=== PATIENT | female | born 1985 | race Caucasian/White ===

== ENCOUNTER 2024-06-14 23:20 | Emergency (ER) | payer BC, SELFPAY ==
[2024-06-14 23:22] VITALS: BP 142/90
[2024-06-15 00:23] LABS: Urine Albumin Negative (Neg - Trace); Urine Bilirubin Negative (Negative); Urine Character Clear (Clear); Urine Color Straw; Urine Glucose Negative (Negative); Urine Ketone Negative (Negative); Urine Leukocyte Negative (Negative); Urine Nitrite Negative (Negative); Urine Occult Blood Negative (Negative); Urine Specific Gravity 1.005 (<1.030); Urine Urobilinogen Negative (Neg - 1+)
[2024-06-15 00:43] LABS: % Basophils 0.3 % (0-2); % Eosinophils 1.1 % (0-6); % Immature Granulocytes 1.8 % (0-0.5); % Lymphocytes 19.4 % (20.5-51.1); % Monocytes 8.4 % (1.7-9.3); Absolute Eosinophils 0.1 10^3/uL (0-0.7); Absolute Immature Granulocytes 0.2 10^3/uL (0-0.05); Absolute Lymphocytes 1.9 10^3/uL (1.2-3.4); Absolute Monocytes 0.8 10^3/uL (0.1-0.6); Absolute Neutrophils 6.9 10^3/uL (1.4-6.5); Hematocrit 31.5 % (37.0-47.0); Hemoglobin 10.8 g/dL (12.0-16.0); Mean Corp Hgb Conc. 34.3 g/dL (33.0-37.0); Mean Corpuscular Hgb 29.8 pg (27.0-31.0); Mean Platelet Volume 10.9 fL (7.4-10.4); Nucleated Red Blood Cells % 0 %; Platelet Count 209 10^3/uL (130-400); Red Blood Cell Count 3.62 10^6/uL (4.20-5.40); Red Cell Dist. Width 14.5 % (11.5-14.5)
[2024-06-15 00:57] LABS: ALT (SGPT) 14 U/L (0-35); AST (SGOT) 21 U/L (14-36); Albumin 3.2 g/dl (3.5-5.0); Alkaline Phosphatase 71 U/L (38-126); Blood Urea Nitrogen 6 mg/dl (7-17); Carbon Dioxide 22 mmol/L (22-30); Chloride 106 mmol/L (98-107); Glucose 91 mg/dl (70-99); Potassium 3.8 mmol/L (3.5-5.1); Sodium 136 mmol/L (135-145); Total Bilirubin 0.1 mg/dl (0.2-1.3); Total Protein 5.8 g/dl (6.3-8.2); eGFR > 60.00
--- NOTE | 2024-06-15 01:28 | ED.GENMED ---
History of Present Illness
General
Chief Complaint: Flank Pain
Source: patient and family
Exam Limitations: none
Time Seen by Provider: 06/14/24 23:51
Nursing documentation reviewed up to this point in time: agreed with
History of Present Illness
History of Present Illness:
Pleasant 28-week female presents to the emergency department with left-sided flank pain with some nausea. Around 9:30 PM last evening pain came on. At time of exam she states that the pain mostly subsided. After the pain started she
called Dr. Hayes, her [employer] who advised her to come into the emergency department.. Patient has no other complaints. Denies fever, chills, chest pain, or shortness of breath. Denies any calf tenderness.
Review of Systems
Review of Systems
Allergies reviewed?: Yes
All Other Systems: ROS reviewed and negative except as documented in HPI and ROS
Constitutional: Reports no symptoms
EENT: Reports no symptoms
Respiratory: Reports no symptoms
Cardiac: Reports no symptoms
ABD/GI: Reports nausea
: Reports flank pain; Denies dysuria, incontinence, difficulty voiding, urgency, bleeding or discharge
Musculoskeletal: Reports muscle pain
Skin: Reports no symptoms
Neurological: Reports no symptoms
Endocrine: Reports no symptoms
Hematologic/Lymphatic: Reports no symptoms
Psychiatric: Reports anxiety
Phy Exam
General Physical Exam
General Presentation: well appearing and no apparent distress
General Skin: warm and dry
General Habitus: normal
General Mental: alert
General Hydration: appears well hydrated
ENT Exam
ENT Exam: EOMI, pharynx normal, neck supple and normocephalic
Eye Exam
Eye Exam: PERRL, cornea clear and conjunctiva normal
Cardiovascular Exam
Cardiovascular Exam: regular rate/rhythm, no edema, no murmur and normal peripheral pulses
Pulmonary Exam
Pulmonary Exam: lungs clear, no respiratory distress, no rales, no crackles, no rhonchi, no stridor, no wheezing and no cough
Gastrointestinal Exam
Gastrointestinal Exam: normal bowel sounds, non tender, soft, no organomegaly, non distended and other (Gravid appearing)
Neurological Exam
Neurological Exam: alert, oriented x3, no motor deficits and speech normal
Musculoskeletal Exam
Musculoskeletal Exam: full ROM and no edema
Skin Exam
Skin Exam: normal color, warm/dry, no rash and no petechia
Psychiatric Exam
Psychiatric Exam: normal mood/affect
Course
Orders/Labs/Results
Orders:
Orders
06/14/24 23:52
Urinalysis Reflex To Culture Urgent
Date Specimen was Collected: 06/15/24
Time Specimen was Collected: 00:05
06/14/24 23:59
Complete Blood Count/With Diff Urgent
Comprehensive Metabolic Panel Urgent
06/15/24 00:00
US Renal Only W/O Bladder Urgent
Reason For Exam: left flank pain
Abnormal Lab Results
06/15/24
00:06
RBC 3.62 L 10^6/uL
(4.20-5.40)
Hgb 10.8 L g/dL
(12.0-16.0)
Hct 31.5 L %
(37.0-47.0)
MPV 10.9 H fL
(7.4-10.4)
Abs Immat Gran (auto) 0.2 H 10^3/uL
(0-0.05)
Absolute Neuts (auto) 6.9 H 10^3/uL
(1.4-6.5)
Absolute Monos (auto) 0.8 H 10^3/uL
(0.1-0.6)
Immature Gran % 1.8 H %
(0-0.5)
Lymphocytes % 19.4 L %
(20.5-51.1)
BUN 6 L mg/dl
(7-17)
Creatinine 0.5 L mg/dL
(0.6-1.0)
Total Bilirubin 0.1 L mg/dl
(0.2-1.3)
Total Protein 5.8 L g/dl
(6.3-8.2)
Albumin 3.2 L g/dl
(3.5-5.0)
06/15/24 00:06
06/15/24 00:06
Vital Signs
Initial and Last Documented VS:
Initial Vital Signs
Temp Pulse Resp BP Pulse Ox
98 F 94 18 142/90 98
06/14/24 23:22 06/14/24 23:22 06/14/24 23:22 06/14/24 23:22 06/14/24 23:22
Last Documented Vital Signs
Temp Pulse Resp BP Pulse Ox
98 F 94 18 142/90 98
06/14/24 23:22 06/14/24 23:22 06/14/24 23:22 06/14/24 23:22 06/14/24 23:22
*Critical Care Note
Total Time (30-74mins, 75-104mins- exclusive of procedures): Not Applicable
Update Note
Update Note:
Ultrasound renal
IMPRESSION:
Mild/moderate right-sided hydronephrosis. Left kidney without hydronephrosis.
No gross renal mass or stones.
Completely decompressed bladder.
heart tones measured by nursing to be within normal limits. Patient asymptomatic at time of discharge.
ED Attending Note
-
Portions of this chart may have been created with voice recognition software.� Occasional wrong word or��sound alike� substitutions may have occurred due to the inherent limitations of voice recognition software.
Discharge Plan
Departure
Patient Disposition: Home (Routine Discharge)
Date of Disposition: 06/15/24
Time of Disposition: 01:30
Patient with high blood pressure during this ER visit?: Yes
Discharge Problem:
Abdominal pain
Instructions: Stomach Pain Later in , BLOOD PRESSURE
Prescriptions:
No Action
sucralfate [Carafate] 100 mg/mL suspension
10 ml PO ACHS Qty: 400 0RF
Referrals:
Serafin Hayes MD [Active] -
Anusha Chaves CRNP [Family Provider] -
Activity Restrictions/Additional Instructions:
It was a pleasure meeting you and taking part in your care. We hope for your continued healing and wellness.
Please read discharge instructions in their entirety. However, they are for general education and may not describe your exact diagnosis at discharge. Information on your ER visit and medical conditions were discussed with you along with appropriate
follow up information...
If indicated, please take your medications as instructed and indicated on discharge paperwork.
Please schedule a follow up appointment as directed. Call to schedule an appointment
Please return to the emergency department with ANY change in, persisting, or worsening of symptoms. If any of your symptoms do not improve, or persist, or become more severe within 6-12 hours, please return to the emergency department for further
care.
Please return to the emergency department if you develop a headache, neck pain/stiffness, fever greater than 100.4F, chest pain, shortness of breath, persistent nausea, vomiting, slurred speech, difficulty walking, numbness/tingling, weakness, signs
of infection or any other symptoms that are worrisome to you.
If you have any questions or concerns please do not hesitate to call the Hospital at or E-mail me directly at [email or web address]
Interventions
Interventions:
*Risk Screen - Suicide Last Done: 06/14/24 23:22
*General Assessment Last Done: 06/15/24 00:26
*Neglect/Abuse Screening Last Done: 06/14/24 23:22
*ED COVID-19 Vaccine History Last Done: 06/15/24 00:26
*Nursing Disposition Last Done: 06/15/24 01:41
KQ-Qholxm-Fhccfczkqx Assessment Last Done: 06/14/24 23:32
ED-Female Genitourinary Assessment Last Done: 06/15/24 01:30
Discharge Date and Time
Discharge Date/Time: 06/15/24 01:41
Print Language: MARTINIQUAIS
== END 2024-06-15 01:41 | disposition home or self-care (01) ==
LOC: EMR 23:20
PROVIDERS: EMERGENCY PHYSICIAN Student in an Organized Health Care Education/Training Program; FAMILY PHYSICIAN Nurse Practitioner
DX: O99.891 Other specified diseases and conditions complicating pregnancy (principal); R10.9 Unspecified abdominal pain; Z3A.28 28 weeks gestation of pregnancy
CPT/HCPCS: 99284; 76775; 80053; 81003; 85025

== ENCOUNTER → 2024-08-08 07:55 | Outpatient (REF) | payer BC, SELFPAY | LOC: PNTC 07:55 | PROVIDERS: ATTENDING PHYSICIAN Obstetrics & Gynecology | DX: Z31.83 Encounter for assisted reproductive fertility procedure cycle (principal); D25.9 Leiomyoma of uterus, unspecified | CPT/HCPCS: 59025; 76816 ==

== ENCOUNTER → 2024-08-15 07:58 | Outpatient (REF) | payer SELFPAY | LOC: PNTC 07:58 | PROVIDERS: ATTENDING PHYSICIAN Obstetrics & Gynecology | DX: Z31.83 Encounter for assisted reproductive fertility procedure cycle (principal); O09.819 Supervision of pregnancy resulting from assisted reproductive technology, unspecified trimester; O09.519 Supervision of elderly primigravida, unspecified trimester | CPT/HCPCS: 59025; 76815 ==

== ENCOUNTER → 2024-08-22 08:14 | Outpatient (REF) | payer OTHER, SELFPAY | LOC: PNTC 08:14 | PROVIDERS: ATTENDING PHYSICIAN Obstetrics & Gynecology | DX: O09.819 Supervision of pregnancy resulting from assisted reproductive technology, unspecified trimester (principal); O09.529 Supervision of elderly multigravida, unspecified trimester | CPT/HCPCS: 59025 ==

== ENCOUNTER → 2024-08-30 13:15 | Outpatient (REF) | payer OTHER, SELFPAY | LOC: PNTC 13:15 | PROVIDERS: ATTENDING PHYSICIAN Obstetrics & Gynecology | DX: O09.519 Supervision of elderly primigravida, unspecified trimester (principal); O09.819 Supervision of pregnancy resulting from assisted reproductive technology, unspecified trimester | CPT/HCPCS: 59025 ==

== ENCOUNTER → 2024-09-05 13:18 | Outpatient (REF) | payer OTHER, SELFPAY | LOC: PNTC 13:18 | PROVIDERS: ATTENDING PHYSICIAN Obstetrics & Gynecology | DX: O09.519 Supervision of elderly primigravida, unspecified trimester (principal); O09.819 Supervision of pregnancy resulting from assisted reproductive technology, unspecified trimester | CPT/HCPCS: 59025 ==

== ENCOUNTER 2024-09-06 18:56 | Inpatient (IN) | payer OTHER, SELFPAY ==
[2024-09-06 19:07] VITALS: BP 111/85; BMI 26.7
[2024-09-06 19:31] LABS: % Basophils 0.3 % (0-2); % Eosinophils 0.5 % (0-6); % Immature Granulocytes 0.3 % (0-0.5); % Lymphocytes 16.5 % (20.5-51.1); % Monocytes 7.6 % (1.7-9.3); % Neutrophils 74.8 % (42.2-75.2); Absolute Eosinophils 0.1 10^3/uL (0-0.7); Absolute Lymphocytes 2.1 10^3/uL (1.2-3.4); Absolute Neutrophils 9.6 10^3/uL (1.4-6.5); Hematocrit 38.5 % (37.0-47.0); Hemoglobin 13.2 g/dL (12.0-16.0); Mean Corp Hgb Conc. 34.3 g/dL (33.0-37.0); Mean Corpuscular Hgb 29.1 pg (27.0-31.0); Mean Platelet Volume 11.6 fL (7.4-10.4); Nucleated Red Blood Cells % 0 %; Platelet Count 201 10^3/uL (130-400); Red Blood Cell Count 4.53 10^6/uL (4.20-5.40); Red Cell Dist. Width 14.1 % (11.5-14.5); White Blood Cell Count 12.8 10^3/uL (4.8-10.8)
[2024-09-06] MEDS: CYTOTEC 25 MICROGRAM VAG (20:08)
[2024-09-07] MEDS: CYTOTEC 50 MICROGRAM PO ×4 (00:01→15:58)
[2024-09-07] MEDS: LR 1000 IV ×3 (01:09→22:00)
[2024-09-07] MEDS: CYTOTEC PO ×2 (04:44→20:38)
[2024-09-07] MEDS: PITOCIN 30 UNITS/NSS 500 ML IV (23:32)
[2024-09-08] MEDS: STADOL 1 MG IV (03:12)
[2024-09-08] MEDS: LR 1000 IV (05:17)
[2024-09-08] MEDS: TYLENOL 1000 MG PO (10:03)
[2024-09-08] MEDS: BICITRA 30 ML PO (10:03)
[2024-09-08] MEDS: CLEOCIN 50 IV (10:03)
[2024-09-08] MEDS: ZITHROMAX INFUSION 250 IV (10:10)
[2024-09-08] MEDS: GENTAMICIN 58.25 MG IV (10:10)
--- NOTE | 2024-09-08 16:16 | HPS.HSE ---
Family Physician
-
Family Physician: NOT KNOW UNKNOWN - PT DOES
Chief Complaint
-
Induction of labor
History of Present Illness
HPI: Patient is a 38yo @40.6 weeks who presented to Labor and Delivery on 09/06 for elective IOL. She received Cytotec overnight. She then had a cook balloon placed and continued Cytotec. She had spontaneous rupture of membranes and cook balloon
was removed. She was 1-/-2. She was expectantly managed for some time and then started on Pitocin. Pitocin was turned off secondary to variable decelerations. In the morning, she was started on Pitocin again and had a couple large variable
decelerations. Her exam was unchanged and section was recommended.
complications:
- AMA
- IVF
- Uterine fibroids
- FOB Brugada Syndrome, echo normal
PNL: A+/Ab neg/Pap NIL-HPV neg/RI/Ucx NG/Hbsag Neg/HIV Neg/Gc-Ct Neg/Hep C Neg/1hr 137/3hr nml/GBS Neg/PGT Neg
PMHx: migraine, infertility. Fibroids- Fundal 4cm, 2 posterior- 3.2 & 3cm
PSHx; IVF, R. breast cystectomy, [place] teeth extraction
POBHx:Prime (adopted her niece)
FHx: non contributory
SHx: Neg x3
Meds:PNV, Baby ASA
All:Ceclor
Medical History
Past Medical History
Past Medical History: Reports Other
Additional Past Medical History:
migraine, infertility
Past Surgical History: Reports Other
Additional Past Surgical History:
IVF, R breast cystectomy, wisdom teeth
Social History
Tobacco: Non-smoker
Alcohol: None
Drug: None
Family History
Family History: Not pertinent
Allergies / Home Medications
Allergies reflects when Allergies were last updated in [employer].
Home Medications with original date entered in [employer]
Allergy/Medication List:
All: Ceclor
Meds: bASA, PNV
Review of Systems
-
A 12 point ROS was completed and negative except as noted: Yes
Physical Exam
Vital Signs
Vital Signs
Temp Pulse Resp BP
98.5 F 99 16 111/85
09/06/24 19:07 09/06/24 19:07 09/06/24 19:07 09/06/24 19:07
Physical Exam
General: Well Developed and Well Nourished
HEENT: NormoCephalic
Respiratory: Non Labored Respirations
Cardiac: Regular Rhythm
Skin: Warm and Dry
Neuro: Awake and Alert
Psych: Calm
Laboratory Results
-
09/06/24 19:20
Impression/Plan
-
IMPRESSION:
Patient is a 38yo @40.6 presented for IOL on 09/06, now plan to proceed with primary section for non-reassuring heart tones, failed induction of labor
PLAN:
- Risks, benefits, and alternatives to primary section discussed with patient including risks, benefits, alternatives, and need for future operations. She was consented for a blood transfusion in case of emergency. All consent signed.
- Azithromycin, gentamicin, and clindamycin were ordered for antibiotic prophylaxis
- Anesthesia and NICU notified
- Plan to proceed with primary section
--- NOTE | 2024-09-08 18:11 | OR.RPT ---
Operative Report
Operative Report
Preop diagnosis: IUP @40.6, non-reassuring heart tones, failed induction of labor, uterine fibroids, advanced maternal age, IVF
Postop diagnosis: same, velamentous cord insertion
Procedure: Primary low transverse section
Surgeon: Al
Anesthesia: Spinal, Dr. Miles
QBL: 275mL
Findings: Viable male infant born at 1040, Apgars 8/9, nuchalx1, placenta with velamentous cord insertion, 3-4cm intramural fundal fibroid, normal appearing bilateral fallopian tubes and ovaries
Complications: none
Wagner catheter draining clear urine before and after the procedure
Indication: Patient is a 38yo who presented to Labor and Delivery on the evening of 09/06 for elective induction of labor. She was fingertip at the time. She was started on Cytotec. In the morning, she was one and a Cook balloon was placed.
Cytotec was continued for 6 doses. She spontaneously ruptured for clear fluid at 2030. The cook balloon was removed at that time and she was 1-2/50/-2. She was main on her own and expectantly managed. Contractions started to space out and she
was started on Pitocin around 2200. She made change to 2/70/-3 at 0300. At 0415, Pitocin was turned off secondary to variable decelerations. Later in the morning, patient requested to take a shower. Her exam was unchanged. While she was in the
shower, she had a variable deceleration that resolved. Pitocin was restarted. She then had another large variable deceleration. Her exam was still unchanged and Pitocin was turned off. Discussed with patient that at this time, we are not able to
continue the Pitocin and since her exam remains unchanged over several hours, recommend proceeding with primary section. Risks, benefits and alternatives discussed. Anesthesia and NICU were notified.
Procedure: Patient was taken to the operating room where spinal anesthesia was administered and found to be adequate. 5mg/kg of gentamicin, 900mg of Clindamycin, and 500g of Azithromycin were given for antibiotic prophylaxis. The abdomen was prepped
with ChloraPrep. The patient was draped in the normal sterile fashion. She was placed in the dorsal supine position with a left lateral tilt. A Pfannenstiel incision was made with a 10 blade and carried down to the fascia with a scalpel. Hemostasis
achieved with Bovie. The fascia was incised and dissected laterally with Delgado scissors. The superior aspect of the fascia was grasped with Stephenie clamps. The underlying rectus fascia was sharply dissected with Delgado scissors. In a similar fashion the
inferior aspect of the fascia was elevated with Stephenie clamps and the rectus muscle was dissected off with Delgado scissors. The rectus muscles were down the midline to the level of the pubic symphysis with manual dissection. The peritoneum
was bluntly entered and extended using manual traction and Metzenbaum scissors.
Hurst retractor and bladder blade were placed revealing good visualization of the bladder. The vesicouterine peritoneum was identified. A thin lower uterine segment was noted. The lower uterine segment was incised with a scalpel. Small amount
of clear fluid noted at entry into the cavity. The uterine incision was extended bluntly with lateral and upward traction.
The fetus was in cephalic presentation. The head was elevated out of the pelvis with special attention paid to avoid using the uterine incision as a fulcrum. Gentle fundal pressure was applied one the head was brought to the incision. The head
delivered through the hysterotomy. A loose nuchal x1 was reduced and the rest of the infant delivered without difficulty. Delayed cord clamping was performed. Cord gases were collected. The was handed off to the cna. IV oxytocin was
started to facilitate uterine contractions. The placenta was extracted with fundal massage and gentle traction. A velamentous cord insertion was noted and the placenta was sent to pathology for evaluation. The uterus was exteriorized. Allis clamps
were placed at the apices of the hysterotomy. The inside of the uterus was wiped with a lap sponge to assure complete removal of placental membranes. Fundal massage was performed and uterus noted to be firm. The uterine incision was closed with 0
Vicryl in a running locked fashion. A horizontal imbricating stitch was done on the hysterotomy with 0 Vicryl. There was oozing from the left side and center of the hysterotomy and multiple figure of eights with 0 Vicryl and 2-0 Vicryl were used to
achieve hemostasis. A figure of eight with 2-0 Vicryl was placed on the left side of the hysterotomy to achieve hemostasis. The hysterotomy was inspected and noted to be hemostatic. The uterus was placed back in the abdomen. Blood clots and fluid
were wiped out of the abdomen and pelvis with moist laparotomy sponges. There was oozing from the serosa in the middle of the uterus on the right side. Bovie cautery was used to control the oozing. The hysterotomy and uterus were examined again and
noted to be hemostatic.
The rectus muscles were inspected and noted to be hemostatic. The fascial layer was closed in a running continuous fashion using 0 Vicryl. The subcutaneous tissue was copiously irrigated and any small bleeding vessels were cauterized with Bovie
cautery. The subcutaneous tissue was reapproximated in a running continuous fashion with 2-0 Plain. The skin was closed with 4-0 Vicryl in a subcuticular fashion. The incision had a small amount of oozing. Steri strips and a pressure dressing were
applied. The patient tolerated the procedure well. All sponge and instrument counts were correct times two. The patient was taken to the recovery room in stable condition.
[2024-09-08] MEDS: TORADOL 15 MG IV (18:24)
[2024-09-09] MEDS: TORADOL 15 MG IV ×3 (00:01→12:26)
[2024-09-09 05:09] LABS: Hematocrit 34.8 % (37.0-47.0); Hemoglobin 11.7 g/dL (12.0-16.0); Mean Corp Hgb Conc. 33.6 g/dL (33.0-37.0); Mean Corpuscular Hgb 29.2 pg (27.0-31.0); Mean Corpuscular Volume 86.8 fL (81.0-99.0); Mean Platelet Volume 11.3 fL (7.4-10.4); Platelet Count 160 10^3/uL (130-400); Red Blood Cell Count 4.01 10^6/uL (4.20-5.40); Red Cell Dist. Width 14.2 % (11.5-14.5); White Blood Cell Count 14.8 10^3/uL (4.8-10.8)
--- NOTE | 2024-09-09 07:34 | W.PN.ANS.POP ---
Anesthesia Post Operative
- Anesthesia Post Op Note
Vital Signs Stable-See Nursing Note: Yes
Airway Patent: Yes
Adequate Pain Control: Yes
Change in Mental Status: No
Current Postoperative Nausea & Vomiting: No
Anesthesia Complications: No
General Anesthetic Recall: No
Unplanned Admission: No
Post Op Hydration Adequate: Yes
[2024-09-09] MEDS: MYLICON 80 MG PO (10:15)
[2024-09-09] MEDS: TYLENOL 650 MG PO (10:15)
[2024-09-09] MEDS: SENOKOT-S 1 TABLET PO (10:15)
[2024-09-09 12:55] LABS: Syphilis/T. pallidum Ab Reflex Negative (Negative)
[2024-09-09] MEDS: PERCOCET 5/325 1 TABLET PO ×2 (13:28→18:27)
[2024-09-09] MEDS: MOTRIN 600 MG PO (23:16)
[2024-09-10] MEDS: MOTRIN 600 MG PO ×3 (07:50→22:17)
[2024-09-10] MEDS: SENOKOT-S 1 TABLET PO (12:10)
[2024-09-11] MEDS: MOTRIN 600 MG PO (05:57)
--- NOTE | 2024-09-11 10:11 | W.DS.TRANS ---
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
-
Discharge Instructions:
Discharge Diagnosis/Procedures section
Instructions:
Stand-Alone Forms: LDRP Delivery
Changes to Home Medications: No
Discharge Medications:
DC Medications w/original date entered in [facility]
prenat.vits,katja,ywi-vlpw-amcgj 1 tab PO DAILY 09/06/24
acetaminophen 325 mg tablet 650 mg (2 x 325 mg) PO Q4HPRN PRN mild pain #0 tabs 09/11/24
ibuprofen 600 mg tablet 600 mg PO Q6HPRN PRN cramps #30 tabs 09/11/24
sennosides 8.6 mg-docusate sodium 50 mg tablet 1 tab PO DAILYPRN PRN constipation #0 tabs 09/11/24
simethicone 80 mg chewable tablet 80 mg PO TIDPRN PRN flatulence #0 tabs 09/11/24
Home Medication Changes
Pending Results: No
Total time spent discharging patient (in min): 20
== END 2024-09-11 10:48 | disposition home or self-care (01) | DRG 788 ==
LOC: LDRP 18:56
PROVIDERS: Obstetrics & Gynecology; Student in an Organized Health Care Education/Training Program; ADMITTING PHYSICIAN Obstetrics & Gynecology
PROC: 3E0P7VZ Introduction of Hormone into Female Reproductive, Via Natural or Artificial Opening (ICD-10-PCS; 2024-09-06)
PROC: 0U7C7ZZ Dilation of Cervix, Via Natural or Artificial Opening (ICD-10-PCS; 2024-09-07)
PROC: 3E033VJ Introduction of Other Hormone into Peripheral Vein, Percutaneous Approach (ICD-10-PCS; 2024-09-07)
PROC: 10D00Z1 Extraction of Products of Conception, Low, Open Approach (ICD-10-PCS; 2024-09-08)
DX: O48.0 Post-term pregnancy (principal); Z3A.40 40 weeks gestation of pregnancy; Z37.0 Single live birth; O34.13 Maternal care for benign tumor of corpus uteri, third trimester; D25.1 Intramural leiomyoma of uterus; O76 Abnormality in fetal heart rate and rhythm complicating labor and delivery; O61.0 Failed medical induction of labor; O43.123 Velamentous insertion of umbilical cord, third trimester; O69.81X0 Labor and delivery complicated by cord around neck, without compression, not applicable or unspecified
CPT/HCPCS: 88307; 36415; 85025; 85027; 86780; 86850; 86900; 86901